=== PATIENT | male | born 1990 | race African-American/Black ===

== ENCOUNTER 2024-02-22 13:20 | Emergency (ER) | payer OTHER ==
[2024-02-22 13:34] VITALS: RESP 18; TEMP 98.3
[2024-02-22 14:02] LABS: Basophils # (A) 0.1 k/uL (0-0.2); Basophils % (A) 1 %; Eosinophils # (A) 0.2 k/uL (0-0.7); Eosinophils % (A) 3 %; HCT 51.8 % (39.0-53.0); HGB 17.3 gm/dL (13.0-17.5); Lymphocytes # (A) 1.9 k/uL (1.0-4.8); Lymphocytes % (A) 27 %; MCHC 33.4 g/dL (31.0-37.0); Mean Platelet Volume 7.3; Monocytes # (A) 0.4 k/uL (0-1.0); Monocytes % (A) 5 %; Neutrophils # (A) 4.4 k/uL (1.3-7.7); Neutrophils % (A) 62 %; Platelet Count 344 k/uL (150-450); RBC 5.76 m/uL (4.30-5.90); RDW 13.4 % (11.5-15.5)
--- NOTE | 2024-02-22 14:08 | ED ---
Chest Pain HPI - General Chief Complaint: Chest Pain Stated Complaint: chest pain Time Seen by Provider: 02/22/24 13:23 Source: EMS Mode of arrival: EMS Limitations: no limitations - History of Present Illness Initial Comments: 33-year-old male presents emergency department with reported chest pain. States that it started after he was eating. Patient is coming from [place]. States that the pain is substernal without radiation. Describes it as a sharp sensation. Admits nausea without vomiting. No history of cardiac disease. EMS did provide him with aspirin and nitro which he states did alleviate his pain. Patient reports that he is pain-free at this time. He denies intravenous drug use. No fevers chills or cough. No lower abdominal pain. No other alleviating, precipitating or modifying factors - Related Data Home Medications Medication Instructions Recorded Confirmed ARIPiprazole [Abilify] 10 mg PO DAILY 02/22/24 02/22/24 Aspirin EC [Ecotrin] 325 mg PO ONETIME 02/22/24 02/22/24 Escitalopram Oxalate [Lexapro] 10 mg PO DAILY 02/22/24 02/22/24 Losartan [Cozaar] 50 mg PO DAILY 02/22/24 02/22/24 OXcarbazepine [Trileptal] 300 mg PO BID 02/22/24 02/22/24 Topiramate [Topamax] 50 mg PO BID 02/22/24 02/22/24 cloNIDine HCL [Catapres] 0.1 - 0.3 mg PO Q4H PRN 02/22/24 02/22/24 hydroCHLOROthiazide [Hydrodiuril] 25 mg PO DAILY 02/22/24 02/22/24 Previous Rx's Medication Instructions Recorded Albuterol Inhaler [Ventolin Hfa 2 puff INHALATION QID #8 gm 02/22/24 Inhaler] predniSONE [Deltasone] 20 mg PO BID #10 tab 02/22/24 Allergies Allergy/AdvReac Type Severity Reaction Status Date / Time bologna Allergy Swelling Uncoded 02/22/24 15:32 Review of Systems ROS Statement: Those systems with pertinent positive or pertinent negative responses have been documented in the HPI. ROS Other: All systems not noted in ROS Statement are negative. Past Medical History Past Medical History: Asthma, Hypertension Additional Past Surgical History / Comment(s): "had urethra enlarged at 8 or 9 years old" Past Psychological History: Bipolar, Schizophrenia Smoking Status: Current every day smoker Past Alcohol Use History: Abuse, Daily Past Drug Use History: Cocaine, Marijuana General Exam Limitations: no limitations General appearance: alert, in no apparent distress Head exam: Present: atraumatic, normocephalic, normal inspection Eye exam: Present: normal appearance, PERRL, EOMI. Absent: scleral icterus, conjunctival injection, periorbital swelling ENT exam: Present: normal exam, mucous membranes moist Neck exam: Present: normal inspection. Absent: tenderness, meningismus, lymphadenopathy Respiratory exam: Present: normal lung sounds bilaterally. Absent: respiratory distress, wheezes, rales, rhonchi, stridor Cardiovascular Exam: Present: regular rate, normal rhythm, normal heart sounds. Absent: systolic murmur, diastolic murmur, rubs, gallop, clicks GI/Abdominal exam: Present: soft, normal bowel sounds. Absent: distended, tenderness, guarding, rebound, rigid Extremities exam: Present: normal inspection, full ROM, normal capillary refill. Absent: tenderness, pedal edema, joint swelling, calf tenderness Back exam: Present: normal inspection Neurological exam: Present: alert, oriented X3, CN II-XII intact Psychiatric exam: Present: normal affect, normal mood Skin exam: Present: warm, dry, intact, normal color. Absent: rash Course Vital Signs 02/22/24 02/22/24 02/22/24 13:23 15:00 15:30 Temperature 98.3 F Pulse Rate 82 69 60 Respiratory 18 Rate Blood Pressure 164/82 161/98 146/97 O2 Sat by Pulse 98 Oximetry 02/22/24 02/22/24 02/22/24 16:00 16:30 17:00 Temperature Pulse Rate 67 59 L 60 Respiratory Rate Blood Pressure 146/91 143/102 O2 Sat by Pulse Oximetry 02/22/24 17:30 Temperature Pulse Rate 70 Respiratory 18 Rate Blood Pressure 153/98 O2 Sat by Pulse 99 Oximetry Chest Pain MDM - MDM Was pt. sent in by a medical professional or institution (, PA, AUTOMAT CAR ATTENDANT, urgent care, hospital, or [facility]...) When possible be specific @ -Patient sent in from [facility] Did you speak to anyone other than the patient for history (EMS, parent, family, police, friend...)? What history was obtained from this source @ -Spoke with EMS for history Did you review nursing and triage notes (agree or disagree)? Why? @ -I reviewed and agree with nursing and triage notes Were old charts reviewed (outside hosp., previous admission, EMS record, old EKG, old radiological studies, urgent care reports/EKG's, [facility] records)? Report findings @ -I reviewed the transfer packet from [facility] that was sent with the patient Differential Diagnosis (chest pain, altered mental status, abdominal pain women, abdominal pain men, vaginal bleeding, weakness, fever, dyspnea, syncope, headache, dizziness, GI bleed, back pain, seizure, CVA, palpatations, mental health, musculoskeletal)? @ -Differential Chest Pain: Stable Angina, Unstable Angina, STEMI, NSTEMI Aortic Dissection, Pneumothorax, Musculoskeletal, Esophageal Spasm GERD, Cholecystitis, Pancreatitis, Zoster, this is not meant to be an all-inclusive list. EKG interpreted by me (3pts min.). @ -Yes and demonstrates sinus rhythm with a rate of 75. ID interval 154. QRS 114. QTc of 386. No acute ST segment elevations or depressions X-rays interpreted by me (1pt min.). @ -Yes and demonstrates no acute process CT interpreted by me (1pt min.). @ -Yes and demonstrates no central PE U/S interpreted by me (1pt. min.). @ -None done What testing was considered but not performed or refused? (CT, X-rays, U/S, labs)? Why? @ -Second troponin however patient is refusing What meds were considered but not given or refused? Why? @ -None Did you discuss the management of the patient with other professionals (professionals i.e. , PA, AUTOMAT CAR ATTENDANT, lab, RT, psych nurse, social security assessor, ostomy care nurse, teacher, fire prevention officer, family service caseworker)? Give summary @ -No Was smoking cessation discussed for >3mins.? @ -No Was critical care preformed (if so, how long)? @ -No Were there social determinants of health that impacted care today? How? (Homelessness, low income, unemployed, alcoholism, drug addiction, transportation, low edu. Level, literacy, decrease access to med. care, half-way, rehab)? @ -Patient currently in rehab Was there de-escalation of care discussed even if they declined (Discuss DNR or withdrawal of care, Hospice)? DNR status @ -No What co-morbidities impacted this encounter? (DM, HTN, Smoking, COPD, CAD, Cancer, CVA, ARF, Chemo, Hep., AIDS, mental health diagnosis, sleep apnea, morbid obesity)? @ -None Was patient admitted / discharged? Hospital course, mention meds given and route, prescriptions, significant lab abnormalities, going to OR and other pertinent info. @ -Upon arrival patient seen and evaluated in room 11. Thorough history and physical exam was performed. IV access was established and laboratory studies were conducted. Chest x-ray was performed. This is followed by a CT of the chest due to elevated D-dimer. I did request to perform a second troponin however the patient refused. I did discuss the limitations of his evaluation without a second troponin. He is aware of the limitations and the risks. This could lead to permanent disability and even . Patient is accepting of these risks and continues to refuse a second lab draw. From the limited information that I have currently the laboratory studies are all within normal limits. Patient has low heart score. At this time patient will be discharged home and is instructed to follow-up with his primary care. I recommend that he have echo and Holter monitoring. Return for any new or worsening symptoms. Patient agreeable to plan was discharged in stable condition Undiagnosed new problem with uncertain prognosis? @ -No Drug Therapy requiring intensive monitoring for toxicity (Heparin, Nitro, Insulin, Cardizem)? @ -No Were any procedures done? @ -No Diagnosis/symptom? @ -Acute chest pain, elevated D-dimer, evaluation for PE Acute, or Chronic, or Acute on Chronic? @ -Acute Uncomplicated (without systemic symptoms) or Complicated (systemic symptoms)? @ -Complicated Side effects of treatment? @ -No Exacerbation, Progression, or Severe Exacerbation? @ -No Poses a threat to life or bodily function? How? (Chest pain, [place], [place], pneumonia, PE, COPD, DKA, ARF, appy, cholecystitis, CVA, Diverticulitis, Homicidal, Suicidal, threat to staff... and all critical care pts) @ -Yes this patient presented with chest pain Disposition Clinical Impression: Chest pain, Pleurisy Disposition: HOME SELF-CARE Condition: Stable Instructions (If sedation given, give patient instructions): Chest Pain (ED) Additional Instructions: Your cardiac workup was negative. Your CT did not demonstrate a blood clot. It did demonstrate some bronchitis appearance therefore you will be placed on prednisone and an inhaler. Follow-up with your doctor and return for any new or worsening symptoms Prescriptions: predniSONE [Deltasone] 20 mg PO BID #10 tab Albuterol Inhaler [Ventolin Hfa Inhaler] 2 puff INHALATION QID #8 gm Is patient prescribed a controlled substance at d/c from ED?: No Referrals: Nonstaff,Physician [Primary Care Provider] - 1-2 days Time of Disposition: 17:45
[2024-02-22 14:13] LABS: ALT 47 U/L (4-49); AST 32 U/L (17-59); African American GFR (CKD) >90 (>60 ml/min/1.73 sqM); Albumin 4.4 g/dL (3.5-5.0); Alkaline Phosphatase 97 U/L (38-126); Anion Gap 6 mmol/L; Blood Urea Nitrogen 14 mg/dL (9-20); Calcium 10.1 mg/dL (8.4-10.2); Carbon Dioxide 27 mmol/L (22-30); Chloride 105 mmol/L (98-107); Glucose 113 mg/dL (74-99); Lipase 61 U/L (23-300); Magnesium 1.9 mg/dL (1.6-2.3); Non-African American GFR(CKD) >90 (>60 ml/min/1.73 sqM); Sodium 138 mmol/L (137-145); Total Bilirubin 0.4 mg/dL (0.2-1.3); Total Protein 7.7 g/dL (6.3-8.2)
[2024-02-22 14:15] LABS: Partial Thromboplastin Time 25.6 sec (22.0-30.0); Prothrombin Time 10.6 sec (10.0-12.5)
--- NOTE | 2024-02-22 14:16 | XR ---
EXAMINATION TYPE: XR chest 2V DATE OF EXAM: 02/22/2024 COMPARISON: NONE HISTORY: Chest pain TECHNIQUE: Frontal and lateral views of the chest are obtained. FINDINGS: There is no focal air space opacity. No evidence for pneumothorax. No pleural effusion. The cardiac silhouette size is within normal limits. The osseous structures are grossly intact. IMPRESSION: 1. No acute cardiopulmonary process.
[2024-02-22] MEDS: KETOROLAC 15 MG/ML 1 ML VIAL IM STA (14:44)
--- NOTE | 2024-02-22 17:04 | CT ---
EXAMINATION TYPE: CT chest angio for PE DATE OF EXAM: 02/22/2024 COMPARISON: Radiograph same day HISTORY: 33-year-old male ELEVATED D-DIMER AND CHEST PAIN TECHNIQUE: Contiguous axial scanning of the chest performed with IV Contrast, patient injected with 1 00 ml mL of Isovue 370. Coronal/sagittal MIP reconstructions performed. CT DLP: 517.9 mGycm Automated exposure control for dose reduction was used. FINDINGS: The heart is upper limits of normal in size without pericardial effusion. No flattening of the interv entricular septum or reflux of contrast into the hepatic veins. Aorta is normal caliber with a conventional branching anatomy. No thoracic lymphadenopathy by CT size criteria. Mild to moderate bilateral gynecomastia. There is suboptimal contrast bolus and further limitation due to patient breathing during the scan. N o obvious saddle embolus is seen. No obvious central branch embolus. Lobar, segmental, and more dista l arterial branches are essentially nondiagnostic due to the exam limitations. Mild/moderate diffuse bronchial wall thickening. No consolidation, pneumothorax, or pleural effusion. Visualized upper abdomen shows no gross abnormality. IMPRESSION: 1. LIMITED EXAM DUE TO SUBOPTIMAL CONTRAST BOLUS AND PATIENT BREATHING THROUGH THE SCAN. NO LARGE ROGER TRAL OR SADDLE EMBOLUS IS SEEN. LOBAR, SEGMENTAL, AND MORE DISTAL ARTERIAL BRANCHES ARE ESSENTIALLY N ONDIAGNOSTIC AND EMBOLI IN THESE LOCATIONS CANNOT BE EXCLUDED ON THE BASIS OF THIS EXAM. 2. MILD TO MODERATE DIFFUSE BRONCHIAL WALL THICKENING MAY BE SEEN WITH BRONCHITIS OR ASTHMA.
[2024-02-22] MEDS: predniSONE 20 MG TAB PO STA (17:50)
[2024-02-22 17:55] VITALS: BP 153/98; PULSE 70
== END 2024-02-22 18:01 | disposition home or self-care (01) ==
LOC: EC 13:20
DX: R09.1 Pleurisy (principal); R79.1 Abnormal coagulation profile; F17.200 Nicotine dependence, unspecified, uncomplicated; Z88.8 Allergy status to other drugs, medicaments and biological substances
CPT/HCPCS: 36415; 93005; 85379; 80053; 83690; 83735; 84484; 85025; 85610; 85730; 71046; 71275; 99285; 96372; J1885; J7512; Q9967